=== PATIENT | female | born 1995 | race Hispanic/Latino ===

== ENCOUNTER 2018-07-04 06:26 | Emergency (ER) | payer OTHER ==
[2018-07-04 06:58] VITALS: BP 124/79; PULSE 58; RESP 16; TEMP 97.9; O2SAT 98
--- NOTE | 2018-07-04 07:15 | ED PDOC ---
HPI: General Adult Time Seen by Provider: 07/04/18 07:08 Chief Complaint (Nursing): ENT Problem History Per: Patient Onset/Duration Of Symptoms: Days (1) Current Symptoms Are (Timing): Still Present Severity: Moderate Additional Complaint(s): Left ear pain since flying yesterady. No fever or discharge or change in hearing Past Medical History Vital Signs: Last Vital Signs Temp 97.9 F 07/04/18 06:56 Pulse 58 L 07/04/18 06:56 Resp 16 07/04/18 06:56 BP 124/79 07/04/18 06:56 Pulse Ox 98 07/04/18 06:56 - Medical History PMH: No Chronic Diseases - Family History Family History: States: Unknown Family Hx - Home Medications Home Medications: Ambulatory Orders Medication Instructions Recorded Amoxicillin [Amoxil 500 mg Cap] 500 mg PO TID #30 cap 07/04/18 Neomycin/Polymyxin/Hydrocortis 3 drop OT TID #1 bottle 07/04/18 [Cortisporin Otic Susp] traMADol [Ultram] 50 mg PO Q8 #10 tab 07/04/18 - Allergies Allergies/Adverse Reactions: Allergies Allergy/AdvReac Type Severity Reaction Status Date / Time No Known Allergies Allergy Verified 07/04/18 07:12 Review of Systems Constitutional: Negative for: Fever ENT: Positive for: Ear Pain. Negative for: Throat Pain Respiratory: Negative for: Cough Physical Exam - Physical Exam Appears: Positive for: Non-toxic, No Acute Distress Skin: Positive for: Normal Color, Warm, DRY ENT: Positive for: Other (Left canal erythemetous. TM intact. No discharge) - ECG O2 Sat by Pulse Oximetry: 98 Disposition - Clinical Impression Clinical Impression: Otitis externa - Patient ED Disposition Is Patient to be Admitted: No Counseled Patient/Family Regarding: Diagnosis, Need For Followup, Rx Given - Disposition Referrals: [facility] [Outside] Disposition: Routine/Home Disposition Time: 07:15 Condition: FAIR Prescriptions: Amoxicillin [Amoxil 500 mg Cap] 500 mg PO TID #30 cap Neomycin/Polymyxin/Hydrocortis [Cortisporin Otic Susp] 3 drop OT TID #1 bottle traMADol [Ultram] 50 mg PO Q8 #10 tab Instructions: Outer Ear Infection Forms: [employer] ([place]istani)
== END 2018-07-04 07:22 | disposition home or self-care (01) ==
LOC: H.ER 06:26
DX: H60.90 Unspecified otitis externa, unspecified ear (principal)